=== PATIENT | male | born 2000 | race Caucasian/White ===

== ENCOUNTER → 2020-04-30 | Outpatient (REF) | payer OTHER ==
[2020-06-24 03:47] LABS: FREE T4 1.04 NG/DL (0.76-1.46); PROLACTIN 91.8 NG/ML (2.1-17.7); THYROID STIMULATING HORMONE 0.951 uIU/ML (0.358-3.740)
== END ==
LOC: M SFHCADAM 10:52
PROVIDERS: ATTEND Family Medicine
DX: N62 Hypertrophy of breast (principal); E56.9 Vitamin deficiency, unspecified